=== PATIENT | female | born 1965 | race Hispanic/Latino ===

== ENCOUNTER 2016-06-08 16:47 | Inpatient (IN) | payer BC ==
[2016-06-08 17:53] LABS: Basophils % (Auto) 0.4 % (0.0-1.8); Eosinophils % (Auto) 1.7 % (0.0-4.3); Hematocrit 28.3 % (30.3-42.9); Hemoglobin 8.6 gm/dl (10.1-14.3); Mean Corpuscular HGB Conc 30 % (30-34); Mean Corpuscular Volume 74 fl (79-97); Platelet Count 398 K/mm3 (140-440); Red Blood Count 3.81 M/mm3 (3.65-5.03); White Blood Count 8.4 K/mm3 (4.5-11.0)
[2016-06-08 17:58] LABS: Mean Corpuscular Hemoglobin 23 pg (28-32); Red Cell Distribution Width 20.4 % (13.2-15.2)
[2016-06-08 18:06] LABS: Blood Urea Nitrogen 9 mg/dL (7-17); Calcium 9.1 mg/dL (8.4-10.2); Carbon Dioxide 24 mmol/L (22-30); Glucose 93 mg/dL (65-100)
[2016-06-08 18:07] LABS: Anion Gap 19 mmol/L; Potassium 3.8 mmol/L (3.6-5.0); Sodium 139 mmol/L (137-145)
[2016-06-08 18:16] LABS: INR 1.3 (0.87-1.13)
[2016-06-08 18:17] LABS: Partial Thromboplastin Time 30.9 Sec. (24.2-36.6)
--- NOTE | 2016-06-08 18:27 | Emergency Department Report ---
ED General Adult HPI - General Chief complaint: Recheck/Abnormal Lab/Rx Stated complaint: ABNORMAL LABS Time Seen by Provider: 06/08/16 17:54 Source: patient Mode of arrival: Ambulatory Limitations: Physical Limitation - History of Present Illness Initial comments: 50-year-old female with a past medical history of recently diagnosed DVT/PE, and PAD presents to the hospital with complaints of incidentally diagnosis PE on outpatient CT. Patient states she was diagnosed with a right leg DVT and Dr. Choe's office approximately one week ago May 31. She was started on Xarelto 15 mg twice a day. She had an outpatient CT angiogram abdomen and pelvis with runoff arteriogram on June 07. Pulmonary emboli were incidentally noted in the right lower lobe. Patient has a moderate to large hiatal hernia. Patient has thrombus in the distal right common iliac artery with a small thrombus also noted in the right external iliac artery proximately. There is occlusion of the right SFA with reconstitution at the level of the popliteal artery with 3 vessel runoff. Left extremity was normal. Patient states she had an episode yesterday after receiving CT in which she felt like gas pressure extending from her abdomen to her chest. Symptoms were severe but relieved after belching. No further chest pain reported. She denies pleuritic chest pain, shortness of breath, or dyspnea on exertion. She has been compliant with her Xarelto for the past week. Patient having ongoing right leg pain, swelling , and numbness - Related Data Home Medications Medication Instructions Recorded Confirmed Last Taken cloNIDine [Clonidine] 1 patch TRANSDERMA QWEEK 01/12/15 01/14/15 01/07/15 HYDROcodone-Acetamin 5-163/7.5 5 mg PO Q4-6H 01/14/15 01/14/15 01/14/15 Allergies Allergy/AdvReac Type Severity Reaction Status Date / Time adhesive tape Allergy Unknown Verified 06/08/16 16:57 latex Allergy Unknown Verified 06/08/16 16:57 lorazepam [From Ativan] AdvReac HALLUCINATI Verified 06/08/16 16:57 ONS perfume AdvReac Shortness Verified 06/08/16 16:57 of Breath HAIRSPRAYS Allergy Shortness Uncoded 06/08/16 16:57 of Breath SCENTED DEODERANT Allergy Shortness Uncoded 06/08/16 16:57 of Breath SCENTED LOTIONS Allergy Shortness Uncoded 06/08/16 16:57 of Breath SCENTED SOAPS Allergy Shortness Uncoded 06/08/16 16:57 of Breath ED Review of Systems ROS: Stated complaint: ABNORMAL LABS Other details as noted in HPI Comment: All other systems reviewed and negative Other: Constitutional: No fevers chills Eyes: No eye pain visual changes ENT: No ear pain or throat pain Neck: Denies pain Respiratory: Denies cough wheezing shortness of breath Cardiovascular: Deniespalpitations, syncope GI: Denies abdominal pain, nausea, vomiting, diarrhea : Denies dysuria Musculoskeletal: right leg pain Skin: Denies rash, lesions, erythema Neurologic: Denies headache, numbness, weakness ED Past Medical Hx - Past Medical History Hx Deep Vein Thrombosis: Yes (May 31, 2016 diagnosed) Hx Pulmonary Embolism: Yes (06/07/16 diagnosed) Hx Asthma: No Hx COPD: No Hx HIV: No - Surgical History Additional Surgical History: BILATERAL BUNYONECTOMY - Social History Smoking Status: Never Smoker Substance Use Type: None - Medications Home Medications: Home Medications Medication Instructions Recorded Confirmed Last Taken Type cloNIDine [Clonidine] 1 patch TRANSDERMA QWEEK 01/12/15 01/14/15 01/07/15 History HYDROcodone-Acetamin 5-163/7.5 5 mg PO Q4-6H 01/14/15 01/14/15 01/14/15 History ED Physical Exam - General Limitations: Physical Limitation - Other Other exam information: General: No limitations, patient is alert in no acute distress Head exam: Atraumatic, normocephalic Eyes exam: Normal appearance, pupils equal reactive to light, extraocular movements intact ENT: Moist mucous membrane, normal oropharynx Neck exam: Normal inspection, full range of motion Respiratory exam: Clear to auscultation bilateral, no wheezes, rales, crackles Cardiovascular: Normal rate and rhythm, normal heart sounds Abdomen: Soft, nondistended, and nontender, with normal bowel sounds, no rebound, or guarding Extremity: Lower extremity right leg edema and tenderness Back: Normal Inspection, full range of motion, no tenderness Neurologic: Alert, oriented x3, cranial nerves intact, no motor or sensory deficit Psychiatric: normal affect, normal mood Skin: Warm, dry, intact ED Course Vital Signs 06/08/16 06/08/16 16:52 18:00 Temperature 98.3 F Pulse Rate 102 H 92 H Respiratory 18 Rate Blood Pressure 136/87 O2 Sat by Pulse 96 Oximetry - Reevaluation(s) Reevaluation #1: 06/08/16 18:28 Evening dose of Xarelto order - Consultations Consultation #1: 06/08/16 18:22 case d/w Dr Bolaños vascular recommendations: continue xarelto 15mg PO BID repeat doppler of extremity CTA chest in 1-2 days ED Medical Decision Making - Lab Data Result diagrams: 06/08/16 17:31 06/08/16 17:31 Lab Results 06/08/16 06/08/16 06/08/16 Range/Units 17:31 17:31 17:31 WBC 8.4 (4.5-11.0) K/mm3 RBC 3.81 (3.65-5.03) M/mm3 Hgb 8.6 L (10.1-14.3) gm/dl Hct 28.3 L (30.3-42.9) % MCV 74 L (79-97) fl MCH 23 L (28-32) pg MCHC 30 (30-34) % RDW 20.4 H (13.2-15.2) % Plt Count 398 (140-440) K/mm3 Lymph % (Auto) 19.2 (13.4-35.0) % [place] % (Auto) 7.5 H (0.0-7.3) % Eos % (Auto) 1.7 (0.0-4.3) % Baso % (Auto) 0.4 (0.0-1.8) % Lymph # 1.6 (1.2-5.4) K/mm3 [place] # 0.6 (0.0-0.8) K/mm3 Eos # 0.1 (0.0-0.4) K/mm3 Baso # 0.0 (0.0-0.1) K/mm3 Seg Neutrophils % 71.2 H (40.0-70.0) % Seg Neutrophils # 6.0 (1.8-7.7) K/mm3 PT 16.1 H (12.2-14.9) Sec. INR 1.30 H (0.87-1.13) APTT 30.9 (24.2-36.6) Sec. Sodium 139 (137-145) mmol/L Carbon Dioxide 24 (22-30) mmol/L BUN 9 (7-17) mg/dL Creatinine 0.6 L (0.7-1.2) mg/dL Estimated GFR > 60 ml/min BUN/Creatinine Ratio 15.00 % Glucose 93 (65-100) mg/dL Calcium 9.1 (8.4-10.2) mg/dL Troponin T < 0.010 (0.00-0.029) ng/mL Potassium 3.8, chloride 100, anion gap 19 - EKG Data -: EKG Interpreted by Me (sinus rhythm rate [address] elevation) - Radiology Data Radiology results: report reviewed - Medical Decision Making Plan to admit patient to the hospital for further workup and evaluation for newly diagnosed PE on CT angiogram abdomen and pelvis. Patient will need a CT angiogram chest as well as vascular consultation - Differential Diagnosis pulmonary emboli, PAD, DVT Critical Care Time: No Critical care attestation.: If time is entered above; I have spent that time in minutes in the direct care of this critically ill patient, excluding procedure time. ED Disposition Clinical Impression: PAD (peripheral artery disease), Anticoagulated by anticoagulation treatment Pulmonary emboli Qualifiers: Chronicity: acute DVT (deep venous thrombosis) Qualifiers: DVT location: lower extremity Laterality: right Chronicity: acute Disposition: OP ADMITTED IP TO THIS HOSP Is pt being admited?: Yes Condition: Stable Time of Disposition: 18:31 (Dr Marie/hosp)
--- NOTE | 2016-06-08 18:43 | Admit Criteria Form ---
Admission Criteria Documentation: PULMONARY EMBOLISM Clinical Indications for Admission to Inpatient Care (Place 'X' for any and all applicable criteria): Admission is indicated by ANY ONE of the following 1,2,3,4,5 [ ]I. Onset of hypoxia [ ]II. Hemodynamic instability 5 [ ]III. Massive pulmonary embolism (eg, acute embolism causing sustained hypotension, pulselessness, or bradycardia)5 [ ]IV. Need for IV narcotics (eg, to treat dyspnea) [ ]V. Current use of home oxygen therapy [ ]. Active bleeding [ ]VII. Recent surgery [ ]VIII. Active peptic ulcer disease [ ]IX. Documented extensive thrombosis (eg, clot in vena cava or above iliofemoral bifurcation) [ ]X. Embolism while on anticoagulation [ ]XI. 6 [X]XII. Appropriate monitoring and therapy cannot be provided in home or outpatient setting. [ ]XIII. Systemic or catheter-directed thrombolysis 5,7 [ ]XIV. Catheter embolectomy and fragmentation 6 [ ]XV. Vena cava filter placement5 [ ]XVI. Severely diminished cardiopulmonary reserve (eg, cor pulmonale, pulmonary hypertension) [ ]XVII. Severe renal failure (eg, GFR less than 30 mL/min/1.73m2 (0.5 mL/sec/ 1.73m2)) [ ]XVIII.Right ventricular dysfunction (eg, by echocardiogram) 6,11 [ ]XIX. Positive cardiac biomarker (eg, troponin T or I > 0.1 ng/mL (mcg/L), highly sensitive troponin I assay greater than 0.014 ng/mL (mcg/L), BNP or NT proBNP > assay threshold)5,8,9 [ ]XX. Known clotting abn or def (eg, liver disease, antithrombin III, protein C, or protein S abnormality) [ ]XXI. History of heparin-induced thrombocytopenia [ ]XXII. Inpatient admission required rather than observation care (Also use Pulmonary Embolism: Observation Care guideline as appropriate) because of ANY ONE of the following: [ ] a) Significant autoimmune (thrombocytopenia) or coagulopathic reaction occurs in response to anticoagulation [ ] b) Respiratory symptoms (eg, tachypnea, dyspnea) that are severe or persistent [ ] c) Other condition, treatment, or monitoring requiring inpatient admission Extended stay beyond goal length of stay may be needed for 3,28 [ ]a) Hemorrhage or recent surgery [ ]b) Recurrent thromboembolism [ ]c) Persistent hypoxemia [ ]d) Heparin-induced thrombocytopenia The original [facility] [employer] content created by [facility] [employer] has been revised. The portions of the content which have been revised are identified through the use of italic text or in bold, and [facility] has neither reviewed nor approved the modified material. All other unmodified content is copyright [facility] [employer]. Please see references footnoted in the original [facility] [employer] edition 2016 Admission Criteria Met: Yes
[2016-06-08] MEDS ORDERED: XARELTO PO ONE (20:00)
[2016-06-09] MEDS ORDERED: HEPARIN 10,000 UNITS/10 ML IV ONE (03:57)
[2016-06-09] MEDS: HEPARIN/ 0.45% NACL-25,000 UNIT/500 ML 25,000 UNIT/500 ML BAG IV SCH (06:16)
[2016-06-09 06:29] LABS: Hematocrit 26.5 % (30.3-42.9); Hemoglobin 8.1 gm/dl (10.1-14.3)
[2016-06-09 06:34] LABS: INR 1.61 (0.87-1.13)
[2016-06-09 06:35] LABS: Partial Thromboplastin Time 33.8 Sec. (24.2-36.6)
--- NOTE | 2016-06-09 08:39 | Event Note ---
Date: 06/08/16 See H/p in reports-06/08/16 Acute PE-srarted on IV Heparin.Patient already on Xarelto 15 mg po Bid. RLE DVT on Xarelto Will defer to vascular reg discharge.If they D/c Heparin patient maybe discharged on Xarelto 15 po bid
--- NOTE | 2016-06-09 09:46 | History and Physical Report ---
CHIEF COMPLAINT: Shortness of breath for 1 week. HISTORY OF PRESENT ILLNESS: A 50-year-old female with recently diagnosed DVT and peripheral artery disease, was found to have PE on outpatient CAT scan and was referred to the ER. The patient also had a right leg DVT approximately 1 week ago on 05/31/[address] Micah Choe's office. The patient was started on Xarelto 50 mg twice a day. She had an outpatient angiogram of the abdomen and pelvis with runoff arteriogram on 06/07/2016. Pulmonary emboli were incidentally noted in the right lower lobe. The patient also has a moderate to large hiatal hernia. The patient has some shortness of breath, but otherwise, the patient is very comfortable. The patient has thrombus in the distal right common iliac artery with a small thrombus in the right external iliac artery. There is occlusion of the right SFA with reconstitution at the level of the popliteal artery with 3-vessel runoff. Left extremity was normal. The patient has some shortness of breath. The patient also has some epigastric discomfort. Denies pleuritic chest pain. Denies dyspnea on exertion. The patient states she is very comfortable. The patient has been compliant with Xarelto for the past one week. The patient has ongoing right leg pain, swelling and numbness. PAST MEDICAL HISTORY: Significant for hypertension and DVT of right lower extremity. PAST SURGICAL HISTORY: Bilateral bunionectomies. SOCIAL HISTORY: She does not smoke. Lives with family. FAMILY HISTORY: Significant for hypertension. CURRENT MEDICATIONS: Clonidine patch 1 patch weekly and [place] 5/325 mg q.4h. to q.6h. p.r.n. REVIEW OF SYSTEMS: Done. The patient has some shortness of breath. The patient has right lower extremity pain and swelling, especially the calf under the thigh region. Left lower extremity is normal. Otherwise, 14-point review of systems negative. No shortness of breath on exertion. PHYSICAL EXAMINATION: GENERAL: Middle-aged female lying comfortably in bed, smiling. VITAL SIGNS: Temperature is 98.3, pulse is 102, respirations are 18, blood pressure is 136/87. HEENT: Unremarkable. Pupils equal and reactive. NECK: Supple, no lymphadenopathy, no thyromegaly. LUNGS: Clear to auscultation and percussion. Good air entry. CARDIOVASCULAR: S1, S2 heard. No gallop, no murmur, no rub. Apical impulse in left fifth intercostal space and midclavicular line. ABDOMEN: Soft and benign. No hepatosplenomegaly. No guarding, no rigidity. present. Hernial orifices are normal. EXTREMITIES: Right lower extremity is swollen about difference of 2 cm from the right mid calf to left mid calf. SKIN: Normal. CENTRAL NERVOUS SYSTEM: Alert and oriented x 4, nonfocal exam. LABORATORY DATA: Significant for sodium of 139, BUN and creatinine of 9 and 0.9, H and H is 8.6 and 28.3. Outpatient reports, especially from the CT angiogram of the abdomen and pelvis, pulmonary emboli were noted on the right lower lobe. Also a DVT thrombosis in the distal right common iliac artery. ASSESSMENT AND PLAN: 1. Acute pulmonary embolism. The patient was started on IV heparin. The patient on Xarelto 15 mg q.12h. as an outpatient from 05/31/2016. We will defer to Vascular Surgery to stop the Xarelto or stop the heparin. 2. Deep venous thrombosis. Again, the patient on heparin. We will refer to Vascular Surgery regarding Xarelto and heparin, whether heparin can be discontinued. 3. Hypertension. Continue clonidine. 4. Deep venous thrombosis prophylaxis. The patient already on IV heparin. JOB# [id number] CHIVO/KEYLA
[2016-06-09] MEDS ORDERED: THYROID PORK 60 MG PO SCH (10:00)
[2016-06-09] MEDS ORDERED: NORETHINDRONE ACET PO SCH (10:00)
[2016-06-09] MEDS ORDERED: ESTRADIOL PO SCH (10:00)
[2016-06-09] MEDS ORDERED: THYROID PO SCH (13:00)
[2016-06-09 13:41] LABS: Total Iron Binding Capacity 474.6 mcg/dL (250-450)
--- NOTE | 2016-06-09 14:43 | Consultation ---
History of Present Illness - Reason for Consult Consult date: 06/09/16 Requesting physician: MIKE ARAIZA - History of Present Illness The patient is well-known to our service. She presented with complaints of right leg numbness after a previous injury and was discovered to have occlusive disease in her right SFA and popliteal vessels. She was found to have an incidental DVT while being worked up for a bypass of right lower extremity and at that time she was started on Xarelto. Additionally she was found to have a pulmonary embolus on her CTA of her abdomen and pelvis. Monday she states she had an episode of chest pressure without shortness of breath and called 911. She states this resolved and she chose not to present to the emergency department at that time. After review of her CTA which called to check on the patient and she tells that episode so she was advised to present to the emergency department. At this time the patient has no complaints. She is able to cannulate without shortness of breath and has not had any additional complaints of chest pressure. Past History Past Medical History: DVT, PVD, pulmonary embolism Social history: no significant social history Family history: no significant family history Medications and Allergies Allergies Allergy/AdvReac Type Severity Reaction Status Date / Time adhesive tape Allergy Unknown Verified 06/08/16 16:57 latex Allergy Unknown Verified 06/08/16 16:57 lorazepam [From Ativan] AdvReac HALLUCINATI Verified 06/08/16 16:57 ONS perfume AdvReac Shortness Verified 06/08/16 16:57 of Breath HAIRSPRAYS Allergy Shortness Uncoded 06/08/16 16:57 of Breath SCENTED DEODERANT Allergy Shortness Uncoded 06/08/16 16:57 of Breath SCENTED LOTIONS Allergy Shortness Uncoded 06/08/16 16:57 of Breath SCENTED SOAPS Allergy Shortness Uncoded 06/08/16 16:57 of Breath Home Medications Medication Instructions Recorded Confirmed Last Taken Type Acetaminophen [Tylenol] 650 mg PO Q6HR PRN 06/08/16 06/08/16 Unknown History Estradiol/Norethindrone Acet 1 each PO DAILY 06/08/16 06/08/16 Unknown History [Activella 0.5-0.1 mg Tablet] Gabapentin [Neurontin] 300 mg PO Q8HR 06/08/16 06/08/16 06/07/16 History Rivaroxaban [Xarelto] 15 mg PO BID 06/08/16 06/08/16 06/08/16 History Thyroid,Pork [[place] Thyroid] 60 mg PO QDAY 06/08/16 06/08/16 06/07/16 History Active Meds: Active Medications Gabapentin (Neurontin) 300 mg PO Q8HR [facility] Heparin Sodium/Sodium Chloride (Heparin/ 0.45% Nacl-25,000 Unit/500 Ml) 25,000 unit in 500 mls @ 27 mls/hr IV TITR NEVIN; 1,350 UNITS/HR PRN Reason: Protocol Last Admin: 06/09/16 06:16 Dose: 1,350 units/hr, 27 mls/hr Miscellaneous Medication (Estradiol/Norethindrone Acet [Activella 0.5-0.1 Mg Tablet]) 1 each PO DAILY NEVIN Rivaroxaban (Xarelto) 15 mg PO BID NEVIN PRN Reason: Protocol Thyroid (Thyroid) 60 mg PO QDAY NEVIN Review of Systems All systems: negative Exam - Constitutional Vitals: Temp Pulse Resp BP Pulse Ox 98.0 F 18 L 18 107/64 98 06/09/16 05:27 06/09/16 05:27 06/09/16 05:27 06/09/16 05:27 06/09/16 05:27 General appearance: Present: no acute distress - Neck Neck: Present: supple - Respiratory Respiratory effort: normal Respiratory: bilateral: CTA - Cardiovascular Rhythm: regular - Extremities Extremities: no ischemia, No edema, normal color - Abdominal General gastrointestinal: Present: soft, non-tender, non-distended - Rectal Rectal Exam: deferred - Integumentary Integumentary: Present: clear - Musculoskeletal Musculoskeletal: strength equal bilaterally Results - Labs CBC & Chem 7: 06/09/16 05:45 06/08/16 17:31 Labs: Abnormal lab results 06/09/16 06/09/16 06/09/16 Range/Units 05:45 05:45 12:42 Hgb 8.1 L (10.1-14.3) gm/dl Hct 26.5 L (30.3-42.9) % PT 19.1 H (12.2-14.9) Sec. INR 1.61 H (0.87-1.13) Heparin Anti-Xa Level 1.25 H (0.3-0.7) U.I./ml Iron (37-170) ug/dL TIBC (250-450) mcg/dL 06/09/16 Range/Units 12:42 Hgb (10.1-14.3) gm/dl Hct (30.3-42.9) % PT (12.2-14.9) Sec. INR (0.87-1.13) Heparin Anti-Xa Level (0.3-0.7) U.I./ml Iron 16 L (37-170) ug/dL TIBC 474.60 H (250-450) mcg/dL - Imaging and Cardiology CT scan - abdomen: image reviewed Venous US: image reviewed Assessment and Plan The patient is a 50-year-old female with a history of DVT and pulmonary embolus that were found incidentally during her workup for PVD with claudication. She needs a CTA of her chest to evaluate the full extent of her pulmonary embolus. If the embolus is small and does not require additional intervention she can be discharged on her previous oral anticoagulation. If she has a large pulmonary embolus she will require an echo to evaluate the status of her heart with potential for further intervention if necessary. I explained the plan for the patient is expressed understanding and agrees with the plan.
--- NOTE | 2016-06-09 15:40 | Progress Note ---
Assessment and Plan Assessment and plan: Pulmonary embolism, incidental finding - Vascular surgery consulted, recommendation appreciated - CTA Right lower extremity DVT - Doppler ultrasound of the lower extremities showed no occlusive DVT - Patient is on xarelto, and heparin drip Disposition - After CTA result, the PE is small we can discharge his home dose of Xarelto. - If the PE is large and may need intervention from vascular surgery. History Interval history: Patient was seen and evaluated this morning, no chest pain or shortness of breath. No leg pain. Hospitalist Physical - Physical exam Narrative exam: Not in cardiopulmonary distress. The patient appeared well nourished and normally developed. Vital signs as documented. Head exam is unremarkable. No scleral icterus . Neck is without jugular venous distension, thyromegaly, or carotid bruits. Lungs are clear to auscultation. Cardiac exam reveals regular rate and Rhythm. First and second heart sounds normal. No murmurs, rubs or gallops. Abdominal exam reveals normal bowel sounds, no masses, no organomegaly and no aortic enlargement. Extremities are nonedematous. REGISTERED ROUTE ASSOCIATE: Alert and oriented 3. No focal weakness. - Constitutional Vitals: Temp Pulse Resp BP Pulse Ox 98.0 F 18 L 18 107/64 98 06/09/16 05:27 06/09/16 05:27 06/09/16 05:27 06/09/16 05:27 06/09/16 05:27 General appearance: Present: no acute distress Results - Labs CBC & Chem 7: 06/09/16 05:45 06/08/16 17:31 Labs: Laboratory Last Values WBC 8.4 K/mm3 (4.5-11.0) 06/08/16 17:31 RBC 3.81 M/mm3 (3.65-5.03) 06/08/16 17:31 Hgb 8.1 gm/dl (10.1-14.3) L 06/09/16 05:45 Hct 26.5 % (30.3-42.9) L 06/09/16 05:45 MCV 74 fl (79-97) L 06/08/16 17:31 MCH 23 pg (28-32) L 06/08/16 17:31 MCHC 30 % (30-34) 06/08/16 17:31 RDW 20.4 % (13.2-15.2) H 06/08/16 17:31 Plt Count 379 K/mm3 (140-440) 06/09/16 05:45 Lymph % (Auto) 19.2 % (13.4-35.0) 06/08/16 17:31 [place] % (Auto) 7.5 % (0.0-7.3) H 06/08/16 17:31 Eos % (Auto) 1.7 % (0.0-4.3) 06/08/16 17:31 Baso % (Auto) 0.4 % (0.0-1.8) 06/08/16 17:31 Lymph # 1.6 K/mm3 (1.2-5.4) 06/08/16 17:31 [place] # 0.6 K/mm3 (0.0-0.8) 06/08/16 17:31 Eos # 0.1 K/mm3 (0.0-0.4) 06/08/16 17:31 Baso # 0.0 K/mm3 (0.0-0.1) 06/08/16 17:31 Seg Neutrophils % 71.2 % (40.0-70.0) H 06/08/16 17:31 Seg Neutrophils # 6.0 K/mm3 (1.8-7.7) 06/08/16 17:31 PT 19.1 Sec. (12.2-14.9) H 06/09/16 05:45 INR 1.61 (0.87-1.13) H 06/09/16 05:45 APTT 33.8 Sec. (24.2-36.6) 06/09/16 05:45 Heparin Anti-Xa Level 1.25 U.I./ml (0.3-0.7) H 06/09/16 12:42 Sodium 139 mmol/L (137-145) 06/08/16 17:31 Carbon Dioxide 24 mmol/L (22-30) 06/08/16 17:31 BUN 9 mg/dL (7-17) 06/08/16 17:31 Creatinine 0.6 mg/dL (0.7-1.2) L 06/08/16 17:31 Estimated GFR > 60 ml/min 06/08/16 17:31 BUN/Creatinine Ratio 15.00 % 06/08/16 17:31 Glucose 93 mg/dL (65-100) 06/08/16 17:31 Calcium 9.1 mg/dL (8.4-10.2) 06/08/16 17:31 Iron 16 ug/dL (37-170) L 06/09/16 12:42 TIBC 474.60 mcg/dL (250-450) H 06/09/16 12:42 % Saturation 3.37 % 06/09/16 12:42 Transferrin 339 mg/dl (192-382) 06/09/16 12:42 Troponin T < 0.010 ng/mL (0.00-0.029) 06/09/16 00:13 Vitamin B12 545.2 pg/mL (211-911) 06/09/16 12:42
[2016-06-09] MEDS: NEURONTIN PO SCH ×4 (18:25→23:06)
[2016-06-09] MEDS: XARELTO PO SCH ×2 (18:27→23:05)
[2016-06-10] MEDS: HEPARIN/ 0.45% NACL-25,000 UNIT/500 ML 25,000 UNIT/500 ML BAG IV SCH (02:38)
[2016-06-10] MEDS: XARELTO PO SCH ×2 (04:57→10:02)
[2016-06-10] MEDS: NEURONTIN PO SCH ×2 (05:38→13:55)
[2016-06-10 05:39] LABS: Hematocrit 25.4 % (30.3-42.9); Hemoglobin 7.6 gm/dl (10.1-14.3); Mean Corpuscular HGB Conc 30 % (30-34); Mean Corpuscular Volume 75 fl (79-97); Platelet Count 347 K/mm3 (140-440); Red Blood Count 3.41 M/mm3 (3.65-5.03); Red Cell Distribution Width 19.6 % (13.2-15.2); White Blood Count 6.4 K/mm3 (4.5-11.0)
[2016-06-10 05:42] LABS: Mean Corpuscular Hemoglobin 22 pg (28-32)
[2016-06-10 05:56] LABS: INR 1.01 (0.87-1.13)
[2016-06-10 05:57] LABS: Partial Thromboplastin Time 54.7 Sec. (24.2-36.6)
[2016-06-10 06:05] LABS: Anion Gap 17 mmol/L; Blood Urea Nitrogen 9 mg/dL (7-17); Calcium 8.9 mg/dL (8.4-10.2); Carbon Dioxide 24 mmol/L (22-30); Chloride 105.1 mmol/L (98-107); Glucose 110 mg/dL (65-100); Sodium 142 mmol/L (137-145)
[2016-06-10 07:18] LABS: Anisocytosis 1+; Basophils % (Manual) 0 % (0.0-1.8); Blastocytes % (Manual) 0 %; Hypochromasia 1+
[2016-06-10 07:19] LABS: Diff Status Complete; Elliptocytes Few; Poikilocytosis Few; Smudge Cells Rare; Stomatocytes Few
--- NOTE | 2016-06-10 07:43 | Vascular Lab Report ---
LOWER EXTREMITY VENOUS DUPLEX: REASON FOR EXAM: Pulmonary embolism. COMMENTS ON THE RIGHT: Extensive deep venous thrombosis is noted starting in the posterior tibial and peroneal veins and extending into and through popliteal, femoral, common femoral, and external iliac veins. The remaining veins visualized are freely compressible without evidence of internal echogenicity. Spontaneous and phasic flow is absent proximally. COMMENTS ON THE LEFT: All veins visualized are freely compressible without evidence of internal echogenicity. Flow is spontaneous and phasic throughout. IMPRESSION: Extensive deep venous thrombosis of the right lower extremity.
[2016-06-10 09:39] VITALS: BP 110/57
[2016-06-10] MEDS ORDERED: BENADRYL PO ONE (10:00)
[2016-06-10] MEDS ORDERED: PEPCID PO NR (10:00)
[2016-06-10] MEDS ORDERED: THYROID PO SCH (10:00)
[2016-06-10] MEDS ORDERED: NACL ONE (10:27)
[2016-06-10] MEDS ORDERED: FLUARIX QUAD 2016-2017(36 MOS+) IM ONE (12:00)
--- NOTE | 2016-06-10 12:10 | Cat Scan Report ---
CTA chest: History: PE. Findings: No evidence of thickening is of a pulmonary embolism. Large hiatal hernia. No mediastinal adenopathy. No pleural pericardial effusion. Normal lung parenchyma. No consolidation. No mass. 2.3 cm hypodensity left lobe liver probably a cyst. Impression: No evidence of pulmonary embolism. Large hiatal hernia.
--- NOTE | 2016-06-10 13:58 | Discharge Summary ---
Providers - Providers Date of Admission: 06/08/16 18:31 Date of discharge: 06/10/16 Attending physician: JAYLYN RICHARDSON MD Primary care physician: CERAMICS TEST ENGINEER Hospitalization Reason for admission: DVT Condition: Stable Hospital course: The patient presented with complaints of right leg numbness after a previous injury and was discovered to have occlusive disease in her right SFA and popliteal vessels. She was found to have an incidental DVT while being worked up for a bypass of right lower extremity and at that time she was started on Xarelto. Additionally she was found to have a pulmonary embolus on her CTA of her abdomen and pelvis. Patient is admitted to the floor and she was put on heparin drip and xarelto was continued. The patient was hemodynamically stable and denied any shortness of breath or chest pain. CTA was done and didn't show any PE. And patient was discharged home with xarelto. Vascular surgery consult appreciated. She is scheduled to see vascular surgeon as an outpatient. Disposition: DISCHARGED TO HOME OR SELFCARE Time spent for discharge: 31 minutes - Discharge Diagnoses (1) Anticoagulated by anticoagulation treatment Status: Acute (2) DVT (deep venous thrombosis) Status: Acute Qualifiers: DVT location: lower extremity Affected thrombotic vein of extremity: A Laterality: right Chronicity: acute (3) PAD (peripheral artery disease) Status: Acute (4) Pulmonary emboli Status: Acute Qualifiers: Pulmonary embolism type: P Chronicity: acute Acute cor pulmonale presence : A (5) History of colonic polyps Status: Acute Core Measure Documentation - Palliative Care Palliative Care/ Comfort Measures: Not Applicable - Core Measures Any of the following diagnoses?: DVT/PE - VTE Discharge Requirements Deep Vein Thrombosis/Pulmonary Embolism Present on Admission: Yes Has pt received <5 days of overlap therapy or INR<2.0: No Anticoagulant overlap therapy prescribed at discharge: No Contraindication No Overlap Therapy order at DC: Not Indicated Exam - Physical Exam Narrative exam: Not in cardiopulmonary distress. The patient appeared well nourished and normally developed. Vital signs as documented. Head exam is unremarkable. No scleral icterus . Neck is without jugular venous distension, thyromegaly, or carotid bruits. Lungs are clear to auscultation. Cardiac exam reveals regular rate and Rhythm. First and second heart sounds normal. No murmurs, rubs or gallops. Abdominal exam reveals normal bowel sounds, no masses, no organomegaly and no aortic enlargement. Extremities are nonedematous. LEATHER STRIPPING MACHINE OPERATOR: Alert and oriented 3. No focal weakness. - Constitutional Vitals: Temp Pulse Resp BP Pulse Ox 98.9 F 80 18 110/57 94 06/10/16 09:38 06/10/16 09:38 06/10/16 09:38 06/10/16 09:38 06/10/16 10:18 Plan Activity: no restrictions Weight Bearing Status: Full Weight Bearing Diet: low fat, low cholesterol Follow up with: PRIMARY CARE, [Primary Care Provider] - 7 Days Prescriptions: Rivaroxaban [Xarelto] 15 mg PO BID #60 tablet
--- NOTE | 2016-06-10 16:10 | Progress Note ---
Assessment and Plan Pt admitted via the ER after outpt CTA (ordered to eval for PVD) suggested R sided PE, and a subsequent episode of chest pain. "I felt like I had a big gas bubble go up into my chest". CTA of the chest was completed earlier today, the report suggested no evidence of PE , but large hiatal hernia. Review of the images suggest a possible small right sided PE. It certainly does not appear as though this would need thrombolysis. Her chest discomfort very well could be related to her hiatal hernia. Discussed with the pt, she will f/u with her can line operator, Dr Andrews as an outpt. Okay to d/c from a vascular stand point once cleared medically. Pt will need to resume Xarelto upon discharge, and f/u with Dr Choe next week as previously scheduled. - Patient Problems (1) DVT (deep venous thrombosis) Current Visit: Yes Status: Acute Qualifiers: DVT location: lower extremity Affected thrombotic vein of extremity: A Laterality: right Chronicity: acute (2) Pulmonary emboli Current Visit: Yes Status: Acute Qualifiers: Pulmonary embolism type: P Chronicity: acute Acute cor pulmonale presence : A Subjective Date of service: 06/10/16 Interval history: Pt awake and alert. Denies new complaints. Objective - Constitutional Vitals: Vital Signs - 12hr 06/10/16 06/10/16 06/10/16 06:15 08:00 09:38 Temperature 98.2 F 98.9 F Pulse Rate 77 Pulse Rate [ 82 Left Radial] Pulse Rate [ 80 Left] Respiratory 18 18 Rate Blood Pressure 107/52 110/57 [Left Arm] O2 Sat by Pulse 99 97 Oximetry 06/10/16 10:18 Temperature Pulse Rate Pulse Rate [ Left Radial] Pulse Rate [ Left] Respiratory Rate Blood Pressure [Left Arm] O2 Sat by Pulse 94 Oximetry General appearance: Present: no acute distress - EENT Eyes: EOM intact ENT: hearing intact - Respiratory Respiratory effort: normal - Neurologic Neurologic: no focal deficits - Psychiatric Psychiatric: appropriate mood/affect, intact judgment & insight, cooperative - Labs CBC & Chem 7: 06/10/16 05:17 06/10/16 05:17 Labs: Abnormal lab results 06/10/16 06/10/16 06/10/16 Range/Units 05:17 05:17 05:17 RBC 3.41 L (3.65-5.03) M/mm3 Hgb 7.6 L (10.1-14.3) gm/dl Hct 25.4 L (30.3-42.9) % MCV 75 L (79-97) fl MCH 22 L (28-32) pg RDW 19.6 H (13.2-15.2) % Eosinophils % (Manual) 5.0 H (0.0-4.3) % APTT 54.7 H (24.2-36.6) Sec. Creatinine 0.6 L (0.7-1.2) mg/dL Glucose 110 H (65-100) mg/dL
== END 2016-06-10 18:00 | disposition home or self-care (01) | DRG 176 ==
LOC: ED 16:47 → 4A 18:31
PROVIDERS: ADMIT Internal Medicine; ATTEND Internal Medicine
DX: I26.99 Other pulmonary embolism without acute cor pulmonale (principal); I82.441 Acute embolism and thrombosis of right tibial vein; I82.4Y1 Acute embolism and thrombosis of unspecified deep veins of right proximal lower extremity; I82.431 Acute embolism and thrombosis of right popliteal vein; I82.411 Acute embolism and thrombosis of right femoral vein; I82.421 Acute embolism and thrombosis of right iliac vein; I73.9 Peripheral vascular disease, unspecified; I10 Essential (primary) hypertension; K44.9 Diaphragmatic hernia without obstruction or gangrene; Z88.8 Allergy status to other drugs, medicaments and biological substances; Z91.040 Latex allergy status; Z91.048 Other nonmedicinal substance allergy status; Z79.01 Long term (current) use of anticoagulants
CPT/HCPCS: 36415; 71275; 80048; 82607; 82747; 83550; 84484; 85007; 85014; 85018; 85025; 85049; 85520; 85610; 85730; 90686; 93005; 93010; 93970; J1644; Q9967

== ENCOUNTER 2016-10-03 10:16 | Outpatient (CLI) | payer BC ==
[2016-10-03] MEDS ORDERED: XYLOCAINE TOPICAL 4% TP ONE (11:14)
== END 2016-10-03 10:17 | disposition home or self-care (01) ==
LOC: WOUND 10:16
PROVIDERS: ATTEND Internal Medicine
DX: L97.812 Non-pressure chronic ulcer of other part of right lower leg with fat layer exposed (principal); G60.3 Idiopathic progressive neuropathy; E03.8 Other specified hypothyroidism; Z86.718 Personal history of other venous thrombosis and embolism
CPT/HCPCS: 99205; G0463

== ENCOUNTER 2016-10-11 10:38 | Outpatient (CLI) | payer BC ==
[2016-10-11] MEDS ORDERED: XYLOCAINE TOPICAL 4% TP ONE (11:41)
== END 2016-10-11 10:39 | disposition home or self-care (01) ==
LOC: WOUND 10:38
PROVIDERS: ATTEND Surgery
DX: L97.812 Non-pressure chronic ulcer of other part of right lower leg with fat layer exposed (principal); E03.8 Other specified hypothyroidism; G60.3 Idiopathic progressive neuropathy; Z86.718 Personal history of other venous thrombosis and embolism
CPT/HCPCS: 97605

== ENCOUNTER 2016-10-18 10:36 | Outpatient (CLI) | payer BC ==
[2016-10-18] MEDS ORDERED: XYLOCAINE TOPICAL 4% TP ONE ×2 (11:14→11:18)
[2016-10-18] MEDS ORDERED: SODIUM CHLORIDE FLUSH SYRINGE 10 ML IV ONE (11:15)
[2016-10-18] MEDS ORDERED: XYLOCAINE 1%/ EPI 1:100,000 INFILTRATI ONE (11:40)
[2016-10-18] MEDS ORDERED: SILVER NITRATE TP ONE ×2 (11:54→14:57)
[2016-10-18] MEDS ORDERED: NACL 0.9% 500 ML IR ONE (12:09)
== END 2016-10-18 10:37 | disposition home or self-care (01) ==
LOC: WOUND 10:36
PROVIDERS: ATTEND Surgery
DX: L97.812 Non-pressure chronic ulcer of other part of right lower leg with fat layer exposed (principal); G60.3 Idiopathic progressive neuropathy; E03.8 Other specified hypothyroidism; Z86.718 Personal history of other venous thrombosis and embolism

== ENCOUNTER 2016-10-21 11:47 | Outpatient (CLI) | payer BC ==
[2016-10-21] MEDS ORDERED: XYLOCAINE TOPICAL 4% TP ONE ×2 (12:17→12:51)
== END 2016-10-21 11:48 | disposition home or self-care (01) ==
LOC: WOUND 11:47
PROVIDERS: ATTEND Podiatrist
DX: L97.812 Non-pressure chronic ulcer of other part of right lower leg with fat layer exposed (principal); E03.8 Other specified hypothyroidism; G60.3 Idiopathic progressive neuropathy; Z86.718 Personal history of other venous thrombosis and embolism
CPT/HCPCS: 87075; 87116; G0463; 99214

== ENCOUNTER 2016-10-25 10:40 | Outpatient (CLI) | payer BC ==
[2016-10-25] MEDS ORDERED: NACL 0.9% 500 ML IR ONE (10:59)
[2016-10-25] MEDS ORDERED: XYLOCAINE TOPICAL 4% TP ONE ×2 (10:59→11:12)
[2016-10-25] MEDS ORDERED: NACL 0.9% IR ONE (14:45)
== END 2016-10-25 10:41 | disposition home or self-care (01) ==
LOC: WOUND 10:40
PROVIDERS: ATTEND Surgery
DX: L97.812 Non-pressure chronic ulcer of other part of right lower leg with fat layer exposed (principal); G60.3 Idiopathic progressive neuropathy; E03.8 Other specified hypothyroidism; Z86.718 Personal history of other venous thrombosis and embolism
CPT/HCPCS: 97605

== ENCOUNTER 2016-10-28 11:31 | Outpatient (CLI) | payer BC ==
[2016-10-28] MEDS ORDERED: NACL 0.9% 500 ML IR ONE (12:10)
[2016-10-28] MEDS ORDERED: NACL 0.9% IR PRN (13:20)
== END 2016-10-28 11:32 | disposition home or self-care (01) ==
LOC: WOUND 11:31
PROVIDERS: ATTEND Podiatrist
DX: L97.812 Non-pressure chronic ulcer of other part of right lower leg with fat layer exposed (principal); G60.3 Idiopathic progressive neuropathy; E03.8 Other specified hypothyroidism; Z86.718 Personal history of other venous thrombosis and embolism
CPT/HCPCS: 97605

== ENCOUNTER 2016-11-01 10:37 | Outpatient (CLI) | payer BC ==
[2016-11-01] MEDS ORDERED: XYLOCAINE TOPICAL 4% TP ONE ×2 (10:52→11:01)
[2016-11-01] MEDS ORDERED: NACL 0.9% 500 ML IR ONE (11:01)
[2016-11-01] MEDS ORDERED: NACL 0.9% IR PRN (14:16)
== END 2016-11-01 10:38 | disposition home or self-care (01) ==
LOC: WOUND 10:37
PROVIDERS: ATTEND Surgery
DX: L97.812 Non-pressure chronic ulcer of other part of right lower leg with fat layer exposed (principal); E03.8 Other specified hypothyroidism; G60.3 Idiopathic progressive neuropathy; Z86.718 Personal history of other venous thrombosis and embolism
CPT/HCPCS: 97605

== ENCOUNTER 2016-11-04 13:04 | Outpatient (CLI) | payer BC ==
[2016-11-04] MEDS ORDERED: NACL 0.9% 500 ML IR ONE (13:36)
== END 2016-11-04 13:05 | disposition home or self-care (01) ==
LOC: WOUND 13:04
PROVIDERS: ATTEND Podiatrist
DX: L97.812 Non-pressure chronic ulcer of other part of right lower leg with fat layer exposed (principal); E03.8 Other specified hypothyroidism; G60.3 Idiopathic progressive neuropathy; Z86.718 Personal history of other venous thrombosis and embolism
CPT/HCPCS: 97605

== ENCOUNTER 2016-11-08 10:39 | Outpatient (CLI) | payer BC ==
[2016-11-08] MEDS ORDERED: XYLOCAINE TOPICAL 4% TP ONE ×2 (10:48→13:40)
[2016-11-08] MEDS ORDERED: NACL 0.9% 500 ML IR ONE (10:48)
[2016-11-08] MEDS ORDERED: NACL 0.9% IR PRN (13:40)
== END 2016-11-08 10:40 | disposition home or self-care (01) ==
LOC: WOUND 10:39
PROVIDERS: ATTEND Surgery
DX: L97.812 Non-pressure chronic ulcer of other part of right lower leg with fat layer exposed (principal); E03.8 Other specified hypothyroidism; G60.3 Idiopathic progressive neuropathy; Z86.718 Personal history of other venous thrombosis and embolism
CPT/HCPCS: 97605

== ENCOUNTER 2016-11-15 10:39 | Outpatient (CLI) | payer BC ==
[2016-11-15] MEDS ORDERED: XYLOCAINE TOPICAL 4% TP ONE ×2 (10:55→11:00)
[2016-11-15] MEDS ORDERED: NACL 0.9% IR PRN (10:55)
[2016-11-15] MEDS ORDERED: NACL 0.9% 500 ML IR ONE (11:00)
== END 2016-11-15 10:40 | disposition home or self-care (01) ==
LOC: WOUND 10:39
PROVIDERS: ATTEND Surgery
DX: L97.812 Non-pressure chronic ulcer of other part of right lower leg with fat layer exposed (principal); E03.8 Other specified hypothyroidism; G60.3 Idiopathic progressive neuropathy; Z86.718 Personal history of other venous thrombosis and embolism
CPT/HCPCS: 97605

== ENCOUNTER 2016-11-22 10:42 | Outpatient (CLI) | payer BC ==
[2016-11-22] MEDS ORDERED: XYLOCAINE TOPICAL 4% TP ONE ×2 (10:45→11:00)
[2016-11-22] MEDS ORDERED: NACL 0.9% IR PRN (11:00)
== END 2016-11-22 10:43 | disposition home or self-care (01) ==
LOC: WOUND 10:42
PROVIDERS: ATTEND Surgery
DX: L97.812 Non-pressure chronic ulcer of other part of right lower leg with fat layer exposed (principal); E03.8 Other specified hypothyroidism; G60.3 Idiopathic progressive neuropathy; Z86.718 Personal history of other venous thrombosis and embolism
CPT/HCPCS: 97605

== ENCOUNTER 2016-11-29 10:31 | Outpatient (CLI) | payer BC ==
[2016-11-29] MEDS ORDERED: NACL 0.9% IR ONE (10:51)
[2016-11-29] MEDS ORDERED: DAKIN'S FULL STRENGTH ONE (10:51)
[2016-11-29] MEDS ORDERED: NACL 0.9% 500 ML IR ONE (10:52)
[2016-11-29] MEDS ORDERED: XYLOCAINE TOPICAL 4% TP ONE (11:00)
== END 2016-11-29 10:32 | disposition home or self-care (01) ==
LOC: WOUND 10:31
PROVIDERS: ATTEND Surgery
DX: L97.812 Non-pressure chronic ulcer of other part of right lower leg with fat layer exposed (principal); E03.8 Other specified hypothyroidism; G60.3 Idiopathic progressive neuropathy; Z86.718 Personal history of other venous thrombosis and embolism
CPT/HCPCS: 97605

== ENCOUNTER 2016-12-06 10:35 | Outpatient (CLI) | payer BC ==
[2016-12-06] MEDS ORDERED: XYLOCAINE TOPICAL 4% TP ONE (11:06)
== END 2016-12-06 10:36 | disposition home or self-care (01) ==
LOC: WOUND 10:35
PROVIDERS: ATTEND Surgery
DX: L97.812 Non-pressure chronic ulcer of other part of right lower leg with fat layer exposed (principal); E03.8 Other specified hypothyroidism; G60.3 Idiopathic progressive neuropathy; Z86.718 Personal history of other venous thrombosis and embolism
CPT/HCPCS: 97605; 97608; 99203; G0463

== ENCOUNTER 2016-12-13 10:31 | Outpatient (CLI) | payer BC ==
[2016-12-13] MEDS ORDERED: XYLOCAINE TOPICAL 4% TP ONE ×2 (11:01→11:24)
== END 2016-12-13 10:32 | disposition home or self-care (01) ==
LOC: WOUND 10:31
PROVIDERS: ATTEND Surgery
DX: L97.812 Non-pressure chronic ulcer of other part of right lower leg with fat layer exposed (principal); E03.8 Other specified hypothyroidism; G60.3 Idiopathic progressive neuropathy; Z86.718 Personal history of other venous thrombosis and embolism
CPT/HCPCS: 97605

== ENCOUNTER 2016-12-20 10:31 | Outpatient (CLI) | payer BC ==
[2016-12-20] MEDS ORDERED: XYLOCAINE TOPICAL 4% TP ONE (11:23)
[2016-12-20] MEDS ORDERED: NACL 0.9% IR ONE (11:24)
== END 2016-12-20 10:32 | disposition home or self-care (01) ==
LOC: WOUND 10:31
PROVIDERS: ATTEND Surgery
DX: L97.812 Non-pressure chronic ulcer of other part of right lower leg with fat layer exposed (principal); E03.8 Other specified hypothyroidism; G60.3 Idiopathic progressive neuropathy; Z86.718 Personal history of other venous thrombosis and embolism
CPT/HCPCS: 97605

== ENCOUNTER 2016-12-27 10:33 | Outpatient (CLI) | payer BC ==
[2016-12-27] MEDS ORDERED: XYLOCAINE TOPICAL 4% TP ONE ×2 (11:06→12:00)
[2016-12-27] MEDS ORDERED: NACL 0.9% 500 ML IR ONE (11:22)
[2016-12-27] MEDS ORDERED: NACL 0.9% IR PRN (11:38)
== END 2016-12-27 10:34 | disposition home or self-care (01) ==
LOC: WOUND 10:33
PROVIDERS: ATTEND Surgery
DX: L97.812 Non-pressure chronic ulcer of other part of right lower leg with fat layer exposed (principal); E03.8 Other specified hypothyroidism; G60.3 Idiopathic progressive neuropathy; Z86.718 Personal history of other venous thrombosis and embolism
CPT/HCPCS: 97605

== ENCOUNTER 2017-01-03 10:36 | Outpatient (CLI) | payer BC ==
[2017-01-03] MEDS ORDERED: XYLOCAINE TOPICAL 4% TP ONE ×2 (11:17)
[2017-01-03] MEDS ORDERED: NACL 0.9% 500 ML IR ONE (11:17)
[2017-01-03] MEDS ORDERED: NACL 0.9% IR ONE (11:33)
== END 2017-01-03 10:37 | disposition home or self-care (01) ==
LOC: WOUND 10:36
PROVIDERS: ATTEND Surgery
DX: T81.89XD Other complications of procedures, not elsewhere classified, subsequent encounter (principal); L97.812 Non-pressure chronic ulcer of other part of right lower leg with fat layer exposed; G60.3 Idiopathic progressive neuropathy; E03.8 Other specified hypothyroidism; I82.401 Acute embolism and thrombosis of unspecified deep veins of right lower extremity; Z86.718 Personal history of other venous thrombosis and embolism; Y83.8 Other surgical procedures as the cause of abnormal reaction of the patient, or of later complication, without mention of misadventure at the time of the procedure

== ENCOUNTER 2017-01-10 10:25 | Outpatient (CLI) | payer BC | END 2017-01-10 10:26 | disposition home or self-care (01) | LOC: WOUND 10:25 | PROVIDERS: ATTEND Surgery | DX: L97.812 Non-pressure chronic ulcer of other part of right lower leg with fat layer exposed (principal); E03.8 Other specified hypothyroidism; G60.3 Idiopathic progressive neuropathy; Z86.718 Personal history of other venous thrombosis and embolism ==

== ENCOUNTER 2017-01-17 10:34 | Outpatient (CLI) | payer BC ==
[2017-01-17] MEDS ORDERED: NACL 0.9% IR PRN (11:45)
[2017-01-17] MEDS ORDERED: NACL 0.9% 500 ML IR ONE (11:50)
== END 2017-01-17 10:35 | disposition home or self-care (01) ==
LOC: WOUND 10:34
PROVIDERS: ATTEND Surgery
DX: L97.812 Non-pressure chronic ulcer of other part of right lower leg with fat layer exposed (principal); E03.8 Other specified hypothyroidism; G60.3 Idiopathic progressive neuropathy; Z86.718 Personal history of other venous thrombosis and embolism

== ENCOUNTER 2017-01-24 10:40 | Outpatient (CLI) | payer BC ==
[2017-01-24] MEDS ORDERED: NACL 0.9% IR PRN (10:54)
[2017-01-24] MEDS ORDERED: XYLOCAINE TOPICAL 4% TP ONE (10:54)
[2017-01-24] MEDS ORDERED: SILVER NITRATE TP ONE ×2 (11:30→11:32)
== END 2017-01-24 10:41 | disposition home or self-care (01) ==
LOC: WOUND 10:40
PROVIDERS: ATTEND Surgery
DX: L97.812 Non-pressure chronic ulcer of other part of right lower leg with fat layer exposed (principal); E03.8 Other specified hypothyroidism; G60.3 Idiopathic progressive neuropathy; Z86.718 Personal history of other venous thrombosis and embolism

== ENCOUNTER 2017-01-31 10:22 | Outpatient (CLI) | payer BC ==
[2017-01-31] MEDS ORDERED: NACL 0.9% 500 ML IR ONE (10:54)
[2017-01-31] MEDS ORDERED: NACL 0.9% IR ONE (11:29)
== END 2017-01-31 10:23 | disposition home or self-care (01) ==
LOC: WOUND 10:22
PROVIDERS: ATTEND Surgery
DX: L97.812 Non-pressure chronic ulcer of other part of right lower leg with fat layer exposed (principal); E03.8 Other specified hypothyroidism; G60.3 Idiopathic progressive neuropathy; Z86.718 Personal history of other venous thrombosis and embolism

== ENCOUNTER → 2017-02-07 | Outpatient (CLI) | payer BC ==
[~2017-02-07] MED LIST: NACL 0.9% 500 ML IR ONE; NACL 0.9% IR ONE; XYLOCAINE TOPICAL 4% TP ONE
== END ==
LOC: WOUND 10:30
PROVIDERS: ATTEND Surgery
DX: L97.812 Non-pressure chronic ulcer of other part of right lower leg with fat layer exposed (principal); E03.8 Other specified hypothyroidism; G60.3 Idiopathic progressive neuropathy; Z86.718 Personal history of other venous thrombosis and embolism

== ENCOUNTER 2017-02-14 10:27 | Outpatient (CLI) | payer BC ==
[2017-02-14] MEDS ORDERED: XYLOCAINE TOPICAL 4% TP ONE ×2 (10:58→11:03)
[2017-02-14] MEDS ORDERED: NACL 0.9% IR PRN (11:03)
== END 2017-02-14 10:28 | disposition home or self-care (01) ==
LOC: WOUND 10:27
PROVIDERS: ATTEND Surgery
DX: L97.812 Non-pressure chronic ulcer of other part of right lower leg with fat layer exposed (principal); E03.8 Other specified hypothyroidism; G60.3 Idiopathic progressive neuropathy; Z86.718 Personal history of other venous thrombosis and embolism

== ENCOUNTER 2017-02-16 08:10 | Day surgery (SDC) | payer BC ==
[~2017-02-16 08:10] MED LIST changes: +ANCEF/STERILE WATER 2 GM/20 ML 2 GM/20 ML SYRINGE IV NR; +NACL 0.9% 1000 ML 1,000 ML IV SCH; -NACL 0.9% 500 ML IR ONE; -NACL 0.9% IR ONE; -XYLOCAINE TOPICAL 4% TP ONE
[2017-02-16] MEDS ORDERED: ALCOHOL DEHYDRATED IV ONE (09:02)
[2017-02-16 09:08] LABS: Basophils % (Auto) 0.6 % (0.0-1.8); Eosinophils % (Auto) 1.8 % (0.0-4.3); Hematocrit 32.6 % (30.3-42.9); Hemoglobin 10.1 gm/dl (10.1-14.3); Mean Corpuscular HGB Conc 31 % (30-34); Mean Corpuscular Volume 78 fl (79-97); Platelet Count 406 K/mm3 (140-440); Red Blood Count 4.18 M/mm3 (3.65-5.03); Red Cell Distribution Width 17.3 % (13.2-15.2); White Blood Count 6.8 K/mm3 (4.5-11.0)
[2017-02-16 09:19] LABS: Anion Gap 14 mmol/L; BUN/Creatinine Ratio 17; Blood Urea Nitrogen 10 mg/dL (7-17); Carbon Dioxide 27 mmol/L (22-30); Chloride 103.9 mmol/L (98-107); Glucose 100 mg/dL (65-100); Mean Corpuscular Hemoglobin 24 pg (28-32); Potassium 4.5 mmol/L (3.6-5.0); Sodium 140 mmol/L (137-145)
[2017-02-16] MEDS ORDERED: HEPARIN/NS 5000 UNIT/500ML(CATH LAB) 1,000 ML IR ONE (09:22)
[2017-02-16] MEDS ORDERED: ANCEF/STERILE WATER 2 GM/20 ML 2 GM/20 ML SYRINGE IV ONE (09:23)
[2017-02-16] MEDS ORDERED: XYLOCAINE 2% INFILTRATI ONE (09:23)
[2017-02-16] MEDS: BENADRYL ONE ×2 (09:35→09:55)
[2017-02-16 09:49] LABS: INR 0.93 (0.87-1.13)
[2017-02-16] MEDS: SUBLIMAZE ONE ×2 (09:53→09:56)
[2017-02-16] MEDS: VERSED ONE ×2 (09:53→09:56)
--- NOTE | 2017-02-16 11:02 | Short Stay Summary ---
Short Stay Documentation Date of service: 02/16/17 Narrative H&P: 51 year old female with postoperative seroma in the right middle thigh. Procedure plan for alcohol sclerotherapy. - History H&P: obtained from office - Allergies and Medications Current Medications: Allergies adhesive tape Allergy (Verified 02/16/17 09:16) TEARS SKIN OFF CAN USE PAPER TAPE Iodinated Contrast- Oral and IV Dye Allergy (Verified 02/16/17 09:16) Shortness of Breath latex Allergy (Verified 02/16/17 09:16) SKIN BLISTERS lorazepam [From Ativan] Adverse Reaction (Verified 02/16/17 09:16) HALLUCINATIONS perfume Adverse Reaction (Verified 02/16/17 09:16) Shortness of Breath soap [From Betadine] Adverse Reaction (Verified 02/16/17 09:16) Unknown HAIRSPRAYS Allergy (Uncoded 06/08/16 16:57) Shortness of Breath SCENTED DEODERANT Allergy (Uncoded 06/08/16 16:57) Shortness of Breath SCENTED LOTIONS Allergy (Uncoded 06/08/16 16:57) Shortness of Breath SCENTED SOAPS Allergy (Uncoded 06/08/16 16:57) Shortness of Breath Home Medications Medication Instructions Recorded Confirmed Last Taken Type Acetaminophen [Acetaminophen TAB] 650 mg PO Q6HR PRN 06/08/16 02/16/17 02/15/17 History 325mg Thyroid,Pork [Theodore Thyroid] 60 mg PO QDAY 06/08/16 02/16/17 02/15/17 History 60mg Aspirin [Aspirin BABY CHEW TAB] 81 mg PO QDAY tab.chew 07/20/16 02/16/17 Rx 81mg Cilostazol [Pletal] 100 mg PO BID #60 tablet 07/20/16 02/16/17 02/15/17 Rx 100mg Gabapentin [Neurontin] 300 mg PO Q8HR #90 capsule 07/20/16 02/16/17 02/15/17 Rx 300mg Rivaroxaban [Xarelto] 20 mg PO QDAY #30 tablet 07/20/16 02/16/17 02/15/17 Rx 20mg Active Medications Cefazolin Sodium (Ancef/Sterile Water 2 Gm/20 Ml) 2 gm in 20 mls @ 80 mls/hr IV PREOP NR PRN Reason: Protocol Stop: 02/16/17 15:00 Last Admin: 02/16/17 09:58 Dose: 20 mls Sodium Chloride (Nacl 0.9% 1000 Ml) 1,000 mls @ 42 mls/hr IV DIRECT NEVIN Last Admin: 02/16/17 09:21 Dose: 42 mls/hr - Physical exam General appearance: no acute distress Lungs: Normal air movement Gastrointestinal: normal - Brief post op/procedure progress note Date of procedure: 02/16/17 Pre-op diagnosis: seroma Post-op diagnosis: same Procedure: alcohol sclerotherapy Anesthesia: local (w/ conscious sedation) Surgeon: AUDREY BUTLER Estimated blood loss: minimal Condition: stable - Hospital course Hospital course: Ready for discharge. - Disposition Condition at discharge: Stable Disposition: DC-01 TO HOME OR SELFCARE - Discharge Diagnoses (1) Seroma Status: Acute Short Stay Discharge Plan Activity: advance as tolerated Weight Bearing Status: Weight Bear as Tolerated Diet: regular Wound: keep clean and dry (keep area dry and clean for 48 hours. can remove dressing after 24 hrs.) Follow up with: SIMONA CORLEY PA [Primary Care Provider] - 7 Days Forms: Post Sedation D/C Instructions
--- NOTE | 2017-02-16 11:07 | Operative Report ---
Operative Report Operative Report: EXAM: 1. Ultrasound-guided placement of a 5 [place] pigtail in a right thigh seroma measuring approximately 3 cm in diameter 2. Sonogram of seroma cavity 3. Injection of 10 mL of dehydrated alcohol into the seroma cavity with 45 minute dwell time DATE: 02/16/17 DRUG WORKER: AUDREY BUTLER MD INDICATION: Painful persistent right thigh seroma which has failed conservative management MEDICATIONS: Please see nursing report for full details. DEVICES: 10 mL of dehydrated alcohol 5 [place] pigtail CONTRAST: 5 mLs of nonionic contrast PROCEDURE: The risks, benefits, and alternatives were discussed with the patient; written informed consent was obtained. The right thigh was prepped and draped in a sterile fashion. Under direct ultrasound evaluation, the right thigh collection was noted to be predominantly unilocular and 3 cm in size. Under direct ultrasound guidance, a 5 [place] drain was directly inserted into the seroma cavity and deployed. 10 mL of fluid was aspirated. Small amount of contrast was injected demonstrating no communication with the surrounding structures. The contrast was aspirated. The collection was predominantly unilocular. This was evaluated under ultrasound and confirmed under ultrasound as well. Contrast was aspirated. 10 mL of dehydrated alcohol was injected into the seroma cavity. 3-0 Ethilon suture was used to secure the drain. The drain was then buttressed with 4 x 4' s and a Tegaderm was applied. The patient was then transferred to the outpatient procedural area. After is a 45 minute dwell time, the alcohol was aspirated. Patient tolerated the procedure well. No immediate postprocedure complication. FINDINGS: Please see procedure note above IMPRESSION: Successful alcohol sclerosis of the seroma cavity.
[2017-02-16 14:57] VITALS: BP 117/66
== END 2017-02-16 11:30 | disposition home or self-care (01) ==
LOC: CATHLABREC 08:10
PROVIDERS: ATTEND Radiology Diagnostic Radiology
DX: L76.34 Postprocedural seroma of skin and subcutaneous tissue following other procedure (principal); Z91.041 Radiographic dye allergy status; Z91.040 Latex allergy status; Z88.8 Allergy status to other drugs, medicaments and biological substances; Z91.048 Other nonmedicinal substance allergy status; Z79.899 Other long term (current) drug therapy; Z79.01 Long term (current) use of anticoagulants
CPT/HCPCS: 10030; 36415; 49185; 80048; 85025; 85610; 85730; 96379; 99152; 99153; J0690; J1200; J1644; J2250; J2930; J3010; J7030; Q9967

== ENCOUNTER 2017-02-21 10:26 | Outpatient (CLI) | payer BC ==
[2017-02-21] MEDS ORDERED: XYLOCAINE TOPICAL 4% TP ONE (10:56)
[2017-02-21] MEDS ORDERED: NACL 0.9% IR ONE (11:00)
== END 2017-02-21 10:27 | disposition home or self-care (01) ==
LOC: WOUND 10:26
PROVIDERS: ATTEND Surgery
DX: L97.812 Non-pressure chronic ulcer of other part of right lower leg with fat layer exposed (principal); G60.3 Idiopathic progressive neuropathy; E03.8 Other specified hypothyroidism; Z86.718 Personal history of other venous thrombosis and embolism

== ENCOUNTER 2017-02-28 10:39 | Outpatient (CLI) | payer BC ==
[2017-02-28] MEDS ORDERED: XYLOCAINE TOPICAL 4% TP ONE ×2 (10:51→11:24)
[2017-02-28] MEDS ORDERED: LOTRISONE TP ONE (11:31)
[2017-02-28] MEDS ORDERED: SODIUM CHLORIDE FLUSH SYRINGE 10 ML IV ONE (12:10)
[2017-02-28] MEDS ORDERED: LOTRISONE TP SCH (22:00)
== END 2017-02-28 10:40 | disposition home or self-care (01) ==
LOC: WOUND 10:39
PROVIDERS: ATTEND Surgery
DX: L97.812 Non-pressure chronic ulcer of other part of right lower leg with fat layer exposed (principal); G60.3 Idiopathic progressive neuropathy; E03.8 Other specified hypothyroidism

== ENCOUNTER 2017-03-02 10:39 | Day surgery (SDC) | payer BC ==
[2017-03-02] MEDS ORDERED: ALCOHOL DEHYDRATED IV ONE (11:38)
[2017-03-02] MEDS ORDERED: NACL 0.9% 500 ML 500 ML IV SCH (12:00)
[2017-03-02] MEDS ORDERED: HEPARIN/NS 5000 UNIT/500ML(CATH LAB) 500 ML IR ONE (12:33)
[2017-03-02] MEDS ORDERED: BENADRYL ONE (12:33)
[2017-03-02] MEDS: VERSED IV ONE ×5 (12:44→13:20)
[2017-03-02] MEDS: SUBLIMAZE ONE ×5 (12:44→13:20)
[2017-03-02] MEDS: XYLOCAINE 2% INFILTRATI ONE ×2 (12:53→13:07)
--- NOTE | 2017-03-02 13:45 | Short Stay Summary ---
Short Stay Documentation Date of service: 03/02/17 Narrative H&P: 51-year-old female with symptomatic right thigh seroma who presents for alcohol sclerotherapy - History Principal diagnosis: symptomatic right thigh seroma H&P: obtained from office - Allergies and Medications Current Medications: Allergies adhesive tape Allergy (Verified 02/16/17 09:16) TEARS SKIN OFF CAN USE PAPER TAPE Iodinated Contrast- Oral and IV Dye Allergy (Verified 02/16/17 09:16) Shortness of Breath latex Allergy (Verified 02/16/17 09:16) SKIN BLISTERS lorazepam [From Ativan] Adverse Reaction (Verified 02/16/17 09:16) HALLUCINATIONS perfume Adverse Reaction (Verified 02/16/17 09:16) Shortness of Breath soap [From Betadine] Adverse Reaction (Verified 02/16/17 09:16) Unknown HAIRSPRAYS Allergy (Uncoded 06/08/16 16:57) Shortness of Breath SCENTED DEODERANT Allergy (Uncoded 06/08/16 16:57) Shortness of Breath SCENTED LOTIONS Allergy (Uncoded 06/08/16 16:57) Shortness of Breath SCENTED SOAPS Allergy (Uncoded 06/08/16 16:57) Shortness of Breath Home Medications Medication Instructions Recorded Confirmed Last Taken Type Acetaminophen [Acetaminophen TAB] 650 mg PO Q6HR PRN 06/08/16 03/02/17 03/02/17 03:00 History 650mg Thyroid,Pork [Tyrone Thyroid] 60 mg PO QDAY 06/08/16 03/02/17 03/01/17 History 60mg Aspirin [Aspirin BABY CHEW TAB] 81 mg PO QDAY tab.chew 07/20/16 03/02/17 10:00 Rx Cilostazol [Pletal] 100 mg PO BID #60 tablet 07/20/16 03/02/17 03/02/17 06:00 Rx 100mg Gabapentin [Neurontin] 300 mg PO Q8HR #90 capsule 07/20/16 03/02/17 03/01/17 Rx 300mg Rivaroxaban [Xarelto] 20 mg PO QDAY #30 tablet 07/20/16 03/02/17 03/02/17 06:15 Rx Active Medications Sodium Chloride (Nacl 0.9% 500 Ml) 500 mls @ 50 mls/hr IV DIRECT NEVIN Last Admin: 03/02/17 12:09 Dose: 50 mls/hr - Physical exam General appearance: no acute distress HEENT: EOMI Lungs: Normal air movement Gastrointestinal: normal Extremities: normal temperature, normal color, abnormal (right thigh seroma) - Brief post op/procedure progress note Date of procedure: 03/02/17 Pre-op diagnosis: right thigh seroma, symptomatic Post-op diagnosis: same Procedure: Alcohol sclerotherapy of right thigh seroma Anesthesia: local (with conscious sedation) Surgeon: AUDREY BUTLER Estimated blood loss: minimal Condition: stable - Hospital course Hospital course: Ready for discharge. Chucho bandage for 1 week. - Disposition Condition at discharge: Stable Disposition: DC-01 TO HOME OR SELFCARE Short Stay Discharge Plan Activity: advance as tolerated Weight Bearing Status: Weight Bear as Tolerated Diet: regular Wound: keep clean and dry Follow up with: SIMONA CORLEY PA [Primary Care Provider] - 7 Days
--- NOTE | 2017-03-02 13:55 | Operative Report ---
Operative Report Operative Report: EXAM: 1. Ultrasound-guided placement of a 5 [place] pigtail in a right thigh seroma measuring approximately 2 cm in diameter 2. Sonogram of seroma cavity 3. Injection of 8 mL of dehydrated alcohol into the seroma cavity with 45 minute dwell time DATE: 03/02/17 BRUSHER MACHINE: AUDREY BUTLER MD INDICATION: Painful persistent right thigh seroma which has failed conservative management MEDICATIONS: Please see nursing report for full details. DEVICES: 10 mL of dehydrated alcohol 5 [place] pigtail CONTRAST: 5 mLs of nonionic contrast PROCEDURE: The risks, benefits, and alternatives were discussed with the patient; written informed consent was obtained. The right thigh was prepped and draped in a sterile fashion. Under direct ultrasound evaluation, the right thigh collection was noted to be predominantly unilocular and 2 cm in size. Under direct ultrasound guidance, a 5 [place] drain was directly inserted into the seroma cavity and deployed. 8 mL of fluid was aspirated. Small amount of contrast was injected demonstrating no communication with the surrounding structures. The contrast was aspirated. The collection was predominantly unilocular. This was evaluated under ultrasound and confirmed under ultrasound as well. Contrast was aspirated. 8 mL of dehydrated alcohol was injected into the seroma cavity. 3-0 Ethilon suture was used to secure the drain. The drain was then buttressed with 4 x 4' s and a Tegaderm was applied. The patient was then transferred to the outpatient procedural area. After is a 45 minute dwell time, the alcohol was aspirated. Patient tolerated the procedure well. No immediate postprocedure complication. FINDINGS: Please see procedure note above IMPRESSION: Successful alcohol sclerosis of the seroma cavity.
[2017-03-02 14:42] VITALS: BP 109/63
== END 2017-03-02 15:00 | disposition home or self-care (01) ==
LOC: CATHLABREC 10:39
PROVIDERS: ATTEND Radiology Diagnostic Radiology
DX: S70.11XA Contusion of right thigh, initial encounter (principal); E66.01 Morbid (severe) obesity due to excess calories; Z68.41 Body mass index [BMI] 40.0-44.9, adult; Z79.899 Other long term (current) drug therapy; Z91.041 Radiographic dye allergy status; Z91.040 Latex allergy status; Z91.048 Other nonmedicinal substance allergy status; Z79.82 Long term (current) use of aspirin; Z98.890 Other specified postprocedural states
CPT/HCPCS: 10140; 96379; J1644; J2250; J3010; J7040; J1200; Q9967

== ENCOUNTER 2017-03-07 10:36 | Outpatient (CLI) | payer BC ==
[2017-03-07] MEDS ORDERED: XYLOCAINE TOPICAL 4% TP ONE (11:01)
[2017-03-07] MEDS ORDERED: NACL 0.9% IR ONE (11:01)
== END 2017-03-07 10:37 | disposition home or self-care (01) ==
LOC: WOUND 10:36
PROVIDERS: ATTEND Surgery
DX: T81.89XD Other complications of procedures, not elsewhere classified, subsequent encounter (principal); L97.812 Non-pressure chronic ulcer of other part of right lower leg with fat layer exposed; L03.115 Cellulitis of right lower limb; E03.8 Other specified hypothyroidism; G60.3 Idiopathic progressive neuropathy; I82.401 Acute embolism and thrombosis of unspecified deep veins of right lower extremity; Z86.718 Personal history of other venous thrombosis and embolism; Y83.8 Other surgical procedures as the cause of abnormal reaction of the patient, or of later complication, without mention of misadventure at the time of the procedure

== ENCOUNTER 2017-03-14 10:31 | Outpatient (CLI) | payer BC ==
[2017-03-14] MEDS ORDERED: XYLOCAINE TOPICAL 4% TP ONE ×2 (10:58→16:17)
[2017-03-14] MEDS ORDERED: NACL 0.9% 500 ML IR ONE (10:58)
[2017-03-14] MEDS ORDERED: NACL 0.9% IR PRN (16:17)
== END 2017-03-14 10:32 | disposition home or self-care (01) ==
LOC: WOUND 10:31
PROVIDERS: ATTEND Surgery
DX: L97.812 Non-pressure chronic ulcer of other part of right lower leg with fat layer exposed (principal); E03.8 Other specified hypothyroidism; G60.3 Idiopathic progressive neuropathy; Z86.718 Personal history of other venous thrombosis and embolism
CPT/HCPCS: 15271; Q4158

== ENCOUNTER 2017-03-21 14:01 | Outpatient (CLI) | payer BC | END 2017-03-21 14:02 | disposition home or self-care (01) | LOC: WOUND 14:01 | PROVIDERS: ATTEND Surgery | DX: L97.812 Non-pressure chronic ulcer of other part of right lower leg with fat layer exposed (principal); G60.3 Idiopathic progressive neuropathy; E03.8 Other specified hypothyroidism; Z86.718 Personal history of other venous thrombosis and embolism ==

== ENCOUNTER 2017-03-28 10:40 | Outpatient (CLI) | payer BC ==
[2017-03-28] MEDS ORDERED: NACL 0.9% 500 ML IR ONE (12:23)
[2017-03-28] MEDS ORDERED: XYLOCAINE TOPICAL 4% TP ONE (12:24)
[2017-03-28] MEDS ORDERED: NACL 0.9% IR ONE (16:24)
== END 2017-03-28 10:41 | disposition home or self-care (01) ==
LOC: WOUND 10:40
PROVIDERS: ATTEND Surgery
DX: L97.812 Non-pressure chronic ulcer of other part of right lower leg with fat layer exposed (principal); G60.3 Idiopathic progressive neuropathy; E03.8 Other specified hypothyroidism; Z86.718 Personal history of other venous thrombosis and embolism

== ENCOUNTER 2017-04-06 10:38 | Outpatient (CLI) | payer BC | END 2017-04-06 10:39 | disposition home or self-care (01) | LOC: WOUND 10:38 | PROVIDERS: ATTEND Surgery | DX: L02.212 Cutaneous abscess of back [any part, except buttock and flank] (principal); E11.9 Type 2 diabetes mellitus without complications; Z90.710 Acquired absence of both cervix and uterus | CPT/HCPCS: 97605 ==

== ENCOUNTER 2017-04-11 10:30 | Outpatient (CLI) | payer BC | END 2017-04-11 10:31 | disposition home or self-care (01) | LOC: WOUND 10:30 | PROVIDERS: ATTEND Surgery | DX: L97.812 Non-pressure chronic ulcer of other part of right lower leg with fat layer exposed (principal); E03.8 Other specified hypothyroidism; G60.3 Idiopathic progressive neuropathy; Z86.718 Personal history of other venous thrombosis and embolism ==

== ENCOUNTER 2017-04-18 10:33 | Outpatient (CLI) | payer BC ==
[2017-04-18] MEDS ORDERED: SILVER NITRATE TP ONE ×2 (11:26→12:03)
== END 2017-04-18 10:34 | disposition home or self-care (01) ==
LOC: WOUND 10:33
PROVIDERS: ATTEND Surgery
DX: T81.89XD Other complications of procedures, not elsewhere classified, subsequent encounter (principal); I82.401 Acute embolism and thrombosis of unspecified deep veins of right lower extremity; L97.812 Non-pressure chronic ulcer of other part of right lower leg with fat layer exposed; E03.8 Other specified hypothyroidism; G60.3 Idiopathic progressive neuropathy; Z86.718 Personal history of other venous thrombosis and embolism; Y83.8 Other surgical procedures as the cause of abnormal reaction of the patient, or of later complication, without mention of misadventure at the time of the procedure

== ENCOUNTER 2017-04-25 10:35 | Outpatient (CLI) | payer BC ==
[2017-04-25] MEDS ORDERED: XYLOCAINE TOPICAL 4% TP ONE ×2 (11:37→11:50)
== END 2017-04-25 10:36 | disposition home or self-care (01) ==
LOC: WOUND 10:35
PROVIDERS: ATTEND Surgery
DX: T81.89XD Other complications of procedures, not elsewhere classified, subsequent encounter (principal); I82.401 Acute embolism and thrombosis of unspecified deep veins of right lower extremity; L97.812 Non-pressure chronic ulcer of other part of right lower leg with fat layer exposed; E03.8 Other specified hypothyroidism; G60.3 Idiopathic progressive neuropathy; Z86.718 Personal history of other venous thrombosis and embolism; Y83.8 Other surgical procedures as the cause of abnormal reaction of the patient, or of later complication, without mention of misadventure at the time of the procedure

== ENCOUNTER 2017-05-02 10:31 | Outpatient (CLI) | payer BC ==
[2017-05-02] MEDS ORDERED: XYLOCAINE TOPICAL 4% TP ONE ×2 (10:35→10:37)
[2017-05-02] MEDS ORDERED: SODIUM CHLORIDE FLUSH SYRINGE 10 ML IV ONE (10:52)
== END 2017-05-02 10:32 | disposition home or self-care (01) ==
LOC: WOUND 10:31
PROVIDERS: ATTEND Surgery
DX: L97.812 Non-pressure chronic ulcer of other part of right lower leg with fat layer exposed (principal); G60.3 Idiopathic progressive neuropathy; E03.8 Other specified hypothyroidism; Z86.718 Personal history of other venous thrombosis and embolism
CPT/HCPCS: 15271; Q4158; C5278

== ENCOUNTER 2017-05-09 10:36 | Outpatient (CLI) | payer BC ==
[2017-05-09] MEDS ORDERED: XYLOCAINE TOPICAL 4% TP ONE ×2 (11:11→11:15)
== END 2017-05-09 10:37 | disposition home or self-care (01) ==
LOC: WOUND 10:36
PROVIDERS: ATTEND Surgery
DX: T81.89XD Other complications of procedures, not elsewhere classified, subsequent encounter (principal); I82.401 Acute embolism and thrombosis of unspecified deep veins of right lower extremity; L97.812 Non-pressure chronic ulcer of other part of right lower leg with fat layer exposed; E03.8 Other specified hypothyroidism; G60.3 Idiopathic progressive neuropathy; Z86.718 Personal history of other venous thrombosis and embolism; Y83.8 Other surgical procedures as the cause of abnormal reaction of the patient, or of later complication, without mention of misadventure at the time of the procedure

== ENCOUNTER 2017-05-16 09:03 | Outpatient (CLI) | payer BC ==
[2017-05-16] MEDS ORDERED: XYLOCAINE TOPICAL 4% TP ONE ×2 (09:30→09:33)
== END 2017-05-16 09:04 | disposition home or self-care (01) ==
LOC: WOUND 09:03
PROVIDERS: ATTEND Surgery
DX: L97.812 Non-pressure chronic ulcer of other part of right lower leg with fat layer exposed (principal); E03.8 Other specified hypothyroidism; Z86.718 Personal history of other venous thrombosis and embolism

== ENCOUNTER 2017-05-23 10:29 | Outpatient (CLI) | payer BC ==
[2017-05-23] MEDS ORDERED: XYLOCAINE TOPICAL 4% TP ONE ×2 (10:53→11:00)
== END 2017-05-23 10:30 | disposition home or self-care (01) ==
LOC: WOUND 10:29
PROVIDERS: ATTEND Surgery
DX: L97.812 Non-pressure chronic ulcer of other part of right lower leg with fat layer exposed (principal); E03.8 Other specified hypothyroidism; G60.3 Idiopathic progressive neuropathy; Z86.718 Personal history of other venous thrombosis and embolism

== ENCOUNTER 2017-05-30 10:25 | Outpatient (CLI) | payer BC ==
[2017-05-30] MEDS ORDERED: XYLOCAINE TOPICAL 4% TP ONE ×2 (11:35→11:39)
== END 2017-05-30 10:26 | disposition home or self-care (01) ==
LOC: WOUND 10:25
PROVIDERS: ATTEND Surgery
DX: T81.89XD Other complications of procedures, not elsewhere classified, subsequent encounter (principal); L97.812 Non-pressure chronic ulcer of other part of right lower leg with fat layer exposed; E03.8 Other specified hypothyroidism; G60.3 Idiopathic progressive neuropathy; Z86.718 Personal history of other venous thrombosis and embolism; Y83.8 Other surgical procedures as the cause of abnormal reaction of the patient, or of later complication, without mention of misadventure at the time of the procedure

== ENCOUNTER 2017-06-06 10:18 | Outpatient (CLI) | payer BC ==
[2017-06-06] MEDS ORDERED: XYLOCAINE TOPICAL 4% TP ONE (10:27)
== END 2017-06-06 10:19 | disposition home or self-care (01) ==
LOC: WOUND 10:18
PROVIDERS: ATTEND Surgery
DX: L97.812 Non-pressure chronic ulcer of other part of right lower leg with fat layer exposed (principal); E03.8 Other specified hypothyroidism; G60.3 Idiopathic progressive neuropathy; Z86.718 Personal history of other venous thrombosis and embolism

== ENCOUNTER 2017-06-13 10:25 | Outpatient (CLI) | payer BC ==
[2017-06-13] MEDS ORDERED: XYLOCAINE TOPICAL 4% TP ONE ×2 (10:52→13:21)
== END 2017-06-13 10:26 | disposition home or self-care (01) ==
LOC: WOUND 10:25
PROVIDERS: ATTEND Surgery
DX: L97.812 Non-pressure chronic ulcer of other part of right lower leg with fat layer exposed (principal); G60.3 Idiopathic progressive neuropathy; E03.8 Other specified hypothyroidism; Z86.718 Personal history of other venous thrombosis and embolism

== ENCOUNTER 2017-06-20 10:27 | Outpatient (CLI) | payer BC | END 2017-06-20 10:28 | disposition home or self-care (01) | LOC: WOUND 10:27 | PROVIDERS: ATTEND Surgery | DX: T81.89XD Other complications of procedures, not elsewhere classified, subsequent encounter (principal); L97.812 Non-pressure chronic ulcer of other part of right lower leg with fat layer exposed; G60.3 Idiopathic progressive neuropathy; E03.8 Other specified hypothyroidism; I82.401 Acute embolism and thrombosis of unspecified deep veins of right lower extremity; Z86.718 Personal history of other venous thrombosis and embolism; Y83.8 Other surgical procedures as the cause of abnormal reaction of the patient, or of later complication, without mention of misadventure at the time of the procedure | CPT/HCPCS: 99211; G0463 ==

== ENCOUNTER 2017-07-04 10:31 | Outpatient (CLI) | payer BC ==
[2017-07-04] MEDS ORDERED: CLOTRIMAZOLE/BETAMETHASONE TP ONE (11:58)
[2017-07-04] MEDS ORDERED: CLOTRIMAZOLE/BETAMETHASONE TP SCH (22:00)
== END 2017-07-04 10:32 | disposition home or self-care (01) ==
LOC: WOUND 10:31
PROVIDERS: ATTEND Surgery
DX: L97.812 Non-pressure chronic ulcer of other part of right lower leg with fat layer exposed (principal); G60.3 Idiopathic progressive neuropathy; E03.8 Other specified hypothyroidism; Z86.718 Personal history of other venous thrombosis and embolism
CPT/HCPCS: 99213; G0463